=== PATIENT | female | born 1970 | race Caucasian/White ===

== ENCOUNTER 2021-09-14 13:22 | Emergency (ER) | payer SELFPAY ==
[2021-09-14 13:40] VITALS: BP 147/104
--- NOTE | 2021-09-16 10:34 | Electrocardiograph Report ---
[facility] Test Date: 2021-09-14 Test Time: 13:48:26 Pat Name: XAVIER RIVERA Department: Room: Gender: F General [employer]: NURSE : 1970 Requested By: PRICILLA DAVIS Order Number: [id number] Reading MD: Albert Andrade Measurements Intervals Independence Rate: 82 P: 66 AL: 142 QRS: 10 QRSD: 100 T: 81 QT: 460 QTc: 538 Interpretive Statements Sinus rhythm LAE, consider biatrial enlargement Inferior infarct, age undetermined Nonpecific T abnormalities, lateral leads Prolonged QT interval No previous ECG available for comparison Electronically Signed On 09-16-2021 10:33:18 EDT by Albert Andrade
== END 2021-09-16 13:26 | disposition left against medical advice (07) ==
LOC: ED 13:22
DX: R07.9 Chest pain, unspecified (principal); Z53.21 Procedure and treatment not carried out due to patient leaving prior to being seen by health care provider
CPT/HCPCS: 93005